=== PATIENT | male | born 1980 | race Caucasian/White ===

== ENCOUNTER 2017-04-10 10:58 | Outpatient (CLI) | payer OTHER | END 2017-04-10 11:07 | disposition home or self-care (01) | LOC: MRI 10:58 | DX: M25.561 Pain in right knee (principal) | CPT/HCPCS: 73721 ==

== ENCOUNTER → 2017-04-14 10:05 | Outpatient (CLI) | payer OTHER ==
[~2017-04-14] VITALS: Ht 152.4 cm; Wt 95.3 kg
== END | disposition home or self-care (01) ==
LOC: PPHC 10:05
DX: M25.561 Pain in right knee (principal)

== ENCOUNTER 2024-09-03 09:42 | Outpatient (CLI) | payer OTHER | END 2024-09-03 09:48 | disposition home or self-care (01) | LOC: RAD 09:42 | DX: M99.01 Segmental and somatic dysfunction of cervical region (principal); M99.02 Segmental and somatic dysfunction of thoracic region; M99.03 Segmental and somatic dysfunction of lumbar region; M99.04 Segmental and somatic dysfunction of sacral region; M99.05 Segmental and somatic dysfunction of pelvic region ==